=== PATIENT | male | born 1960 | race Caucasian/White ===

== ENCOUNTER → 2016-05-30 | Day surgery (SDC) | payer MEDICARE, BC ==
[~2016-05-30] MED LIST: ACETAMINOPHEN PO; AGGRENOX PO; ALBUTEROL17 GM INH; ANDROGEL2.5 GM; BACLOFEN10 MG; CELEBREX; CEPHALEXIN250 M1 PO; COLACE PO; COMBIVENT INH14.7 GM INH; COMBIVENT MININEB INH; COMBIVENT MININEB NEB; COREG3.125 MG PO; COUMADIN PO; COUMADIN10 MG PO; DESYREL50 MG PO; DIAZEPAM; ENULOSE; FIORINAL 50-321 EACH PO; FLEXERIL PO; HUMIBID DM1 TAB.SR . PO; HYDRALAZINE HCL25 MG PO; IPRATR-ALBUTEROL3 ML INH; KLONOPIN; KLONOPIN PO; KLONOPIN1 MG PO; KROGER PHARMACY; LAMISIL PO; LEVAQUIN PO; LEVOTHYROXINE25 MCG PO; LOW DOSE ASPIRI81 M1 PO; METAXALONE800 M1 PO; METHADONE; METHADONE PO; MORPHINE; MORPHINE INJ; MS CONTIN30 MG PO; MUCINEX DM1 TAB.SR . PO; NEURONTIN300 MG PO; OMNICEF300 MG PO; ONDANSETRON ODT4 MG PO; OXYCODONE HCL15 MG PO; OXYGEN; OYSTER CALCIUM500 MG PO; PANTOPRAZOLE SO40 MG; PHYSICIAN; PREDNISONE; PREDNISONE PO; PROAIR; PROTONIX PO; PROTONIX20 MG PO; PROZAC; REMERON15 MG PO; SEROQUEL; SEROQUEL PO; SEROQUEL25 MG PO; SEROQUEL50 M1 PO; SYMBICORT INH; SYNTHROID75 MCG PO; THEOPHYLLIN PO; TRAZODONE; TRAZODONE HCL100 MG PO; TRAZODONE PO; TYLOX 5/500 CAP1 CAP PO; VISTARIL PO; WARFARIN SODIU2.5 M1 PO; WARFARIN SODIUM10 MG PO; XARELTO20 MG PO; Z-PACK; ZANAFLEX4 M1 PO; ZESTRIL2.5 M1 PO; ZITHROMAX PO; ZOLOFT PO
--- NOTE | ~2016-05-30 | OR ---
Unit #: [id number] #: [id number] Patient: REAL MAX [id number] [address] [place], [place] [address] [id number] O MR#: [id number] NAME: REAL MAX ROOM: Date of Procedure: 05/30/2016 Admission Date: 05/30/2016 Surgeon: Jorge Medina M.D. : 1960 Attending Physician: Jorge Medina M.D. Primary Care Physician: Warren Roper M.D. OPERATIVE REPORT POSTOPERATIVE DIAGNOSES Postlumbar fusion, sacroiliac joint dysfunction, back pain. POSTOPERATIVE DIAGNOSES Postlumbar fusion, sacroiliac joint dysfunction, back pain. PROCEDURES PERFORMED 1. Left sacroiliac joint injection with fluoroscopic guidance for needle localization. 2. Diagnostic therapeutic hardware injection, lumbar spine. DESCRIPTION OF PROCEDURE The patient was placed in a prone position. Standard monitors were applied. A sterile prep and drape of the lumbosacral area was performed. Fluoroscopy was used to identify the mid part of the left sacroiliac joint. A 22-gauge Quincke point spinal needle was advanced with fluoroscopic guidance to bring the needle tip to the edge of the joint. Position was confirmed with radiographic contrast and fluoroscopy. This was followed by a dose of 5 mL of a mixture of 80 mg of Depo-Medrol and 6 mL of 0.5% bupivacaine. The patient tolerated this part of the procedure well. Left S1 hardware injection: Fluoroscopy was used to identify the junction of the left S1 screw and stabilizing bar. The skin overlying this was localized with 1% lidocaine. A 22-gauge Quincke point needle was then advanced with fluoroscopic guidance, so the needle came down to the junction between the stabilizing screw, the bar, and order entry clerk to the sacrum. After this was confirmed with fluoroscopy, a dose of 2 mL of a mixture of 80 mg of Depo-Medrol and 6 mL of 0.5% bupivacaine were deposited. The needle was flushed and removed. The patient tolerated the procedure well and was discharged to the recovery room in stable condition. Dictated by... Josiah Pino/nallely TD: 05/31/2016 00:51 JOB #: [id number] Unit #: [id number] #: [id number] Patient: REAL MAX OPERATIVE REPORT X Jorge Medina MD X PROCEDURE OPERATIVE NOTE
== END | disposition home or self-care (01) ==
LOC: CCSC 06:45
DX: M53.3 Sacrococcygeal disorders, not elsewhere classified (principal); Z98.1 Arthrodesis status
CPT/HCPCS: 64999; G0260; J2250

== ENCOUNTER → 2016-10-15 | Day surgery (SDC) | payer MEDICARE, BC ==
--- NOTE | ~2016-10-15 | OR ---
Unit #: [id number] #: [id number] Patient: REAL MAX [id number] [address] [place], [place] [address] [id number] O MR#: [id number] NAME: REAL MAX ROOM: Date of Procedure: 10/15/2016 Admission Date: 10/15/2016 Surgeon: Jorge Medina M.D. : 1960 Attending Physician: Jorge Medina M.D. Primary Care Physician: Warren Roper M.D. OPERATIVE REPORT JOB NOTE: CC: [facility] PREOPERATIVE DIAGNOSES Lumbar disk disease, postlumbar fusion, radiculopathy. POSTOPERATIVE DIAGNOSES Lumbar disk disease, postlumbar fusion, radiculopathy. PROCEDURE PERFORMED Transforaminal epidural steroid injection with fluoroscopic guidance for needle localization. INDICATIONS FOR PROCEDURE The patient is a 55-year-old male, who has been having worse on the left sided leg pain. He is status post L4, L5, S1 fusion. He has some adjacent level disease. Plan is for diagnostic and therapeutic injection tried to determine for the pain is emanating from that L3-L4 level, where there is neural foraminal narrowing due to disk issues. Risks and benefits of all reviewed. DESCRIPTION OF PROCEDURE The patient was placed in a prone position. Standard monitors were applied. Sterile prep and drape of the lumbar area was performed. The skin then to the left of midline at the L3-L4 level was localized with 1% lidocaine. A long 22-gauge Quincke point spinal needle was then advanced with biplanar fluoroscopic guidance to bring the needle tip within the left L3-L4 neural foramina. The patient had a mild paresthesia, which resolved with manipulation of the needle. After confirming proper positioning with fluoroscopy and radiographic contrast, a dose of 80 mg of Depo-Medrol and 1 mL of 0.25% bupivacaine were deposited. The patient will pay attention how he feels today with local anesthetic effect and see how he does longer term with the steroid effect. Dictated by... Jorge Medina M.D. LHP/modl TD: 10/15/2016 15:41 JOB #: [id number] Unit #: [id number] #: [id number] Patient: REAL MAX OPERATIVE REPORT Page 1 of 1 X Jorge Medina MD X PROCEDURE OPERATIVE NOTE
== END | disposition home or self-care (01) ==
LOC: CCSC 08:15
DX: M51.16 Intervertebral disc disorders with radiculopathy, lumbar region (principal); Z98.1 Arthrodesis status; Z88.1 Allergy status to other antibiotic agents; Z99.81 Dependence on supplemental oxygen; Z79.01 Long term (current) use of anticoagulants; Z79.891 Long term (current) use of opiate analgesic; Z79.51 Long term (current) use of inhaled steroids; Z79.82 Long term (current) use of aspirin; Z79.899 Other long term (current) drug therapy
CPT/HCPCS: J1040; J2250

== ENCOUNTER 2016-11-10 04:59 | Inpatient (IN) | payer MEDICARE, BC ==
--- NOTE | ~2016-11-10 | DS ---
Unit #: [id number] #: [id number] Patient: REAL MAX [id number] [address] [address] [id number] I MR#: [id number] NAME: REAL MAX ROOM: 310 Age: 56 Sex: M Admission Date: 11/10/2016 : 1960 Discharge Date: 11/13/2016 Attending Physician: Warren Roper M.D. Primary Care Physician: Warren Roper M.D. DISCHARGE SUMMARY PRINCIPAL DISCHARGE DIAGNOSES 1. Acute on chronic respiratory failure. 2. Left lower lobe community-acquired pneumonia secondary to Haemophilus influenzae. 3. Ongoing tobacco use. 4. Chronic obstructive pulmonary disease. 5. Major depressive disorder. 6. Chronic low back pain. 7. Old cerebrovascular accident. 8. Paroxysmal atrial fibrillation. 9. Chronic anticoagulation therapy. 10. Hyperglycemia. 11. Migraine headaches. 12. Hyponatremia. PROCEDURES None. CONSULTANTS Dr. Gunderson - Psychiatry. REASON FOR HOSPITALIZATION 56-year-old white male, history of COPD, tobacco use, chronic low back pain, major depressive disorder, history of pulmonary embolism, old CVA, paroxysmal atrial fibrillation, chronic anticoagulation therapy, presented to the emergency room with five days of shortness of air and headache. In the ER he had a low-grade temp, tachycardia, tachypnea. O2 sat was 90%. Lactic acid was normal. White count was 15.5, sodium was 130. Random blood sugar 176. Chest x-ray left lower lobe infiltrate and the patient was admitted. HOSPITAL COURSE The patient was admitted. He was placed on respiratory treatments, IV Solu-Medrol, IV antibiotics in the form of Rocephin and Zithromax. He quickly improved. Accu-Cheks were obtained because the Solu-Medrol and hyperglycemia were elevated. Because of this, an A1c was checked and was elevated at 6.2%. Blood cultures showed no growth to date. Sputum culture grew Haemophilus influenzae which was beta-lactamase negative. His sodium corrected on its own without any further treatment. His CBC yesterday showed white count to be down to 12.7, hemoglobin was 12.1. His BMP was normal except for random blood sugar of 141. He is being discharged home on a healthy heart constant carb diet. MEDICATIONS Unit #: [id number] #: [id number] Patient: REAL MAX His current meds: 1. Ventolin two puffs q.4 hours p.r.n. 2. Symbicort 160/4.5, two puffs q.12. 3. Duo-Nebs per unit dose three times daily. 4. Xarelto 20 mg daily. 5. Seroquel 50 mg b.i.d. 6. Remeron 15 mg q. h.s. 7. Tylenol 650 q.6 p.r.n. 8. Vistaril 25 mg t.i.d. 9. Klonopin 1 mg t.i.d. 10. Fiorinal one p.o. daily p.r.n. for headache. 11. MS-Contin 30 mg p.o. b.i.d. 12. Oxycodone 15 mg q.4 hours p.r.n. for breakthrough pain. 13. Zanaflex 4 mg p.o. q.8 hours p.r.n. for muscle spasm. 14. Omnicef 300 mg, one p.o. b.i.d. for an additional seven days. 15. Z-Fei, use as directed. 16. Prednisone 40 mg for two days, 30 mg for two days, 20 mg for two days, then 10 mg for two days, then discontinue. He will follow up in the office in less than one week. He was encouraged once again to stop tobacco use. Dictated by... Warren Roper M.D. AYSHA/madhavi TD: 11/14/2016 09:10 JOB #: [id number] DISCHARGE SUMMARY Page 1 of 1 X Warren Roper MD X DISCHARGE SUMMARY
--- NOTE | ~2016-11-10 | CR72 ---
[facility] A Service of [facility] & [facility] RADIOLOGY TEXT RESULTS PATIENT: REAL MAX LOCATION: [facility] 310-01 : [birth year] UNIT #: [id number] AGE: [address]: Warren Roper MD SEX: M ORDER DR: [id number] [facility] [address] [place], [place] [address] [id number] I MR#: [id number] Acc #: [id number] NAME: REAL MAX : 1960 SEX: M STUDY DATE/TIME: 11/10/2016 05:35 [facility] ROOM: [facility] STUDY DESCRIPTION: CR Chest Single View Portable Attending Physician: Warren Roper M.D. Ordering Physician: Rogers Elliott M.D. Primary Care Physician: Warren Roper M.D. MEDICAL IMAGING REPORT This report is preliminary unless electronic signature is present EXAM Portable chest 11/10 at 05:35 INDICATIONS Shortness of air for 5 days with a headache. COPD. FINDINGS AP portable chest compared with 05/05/2015. Cardiac and mediastinal contours are normal. The lungs are emphysematous. There is some minimal infiltrate or atelectasis at the left base. Lungs otherwise clear. No pneumothorax. IMPRESSION COPD with some minimal infiltrate or atelectasis at the left base. Dictated by... Humphrey Pickett Jr., M.D. THIS IS AN ELECTRONICALLY VERIFIED REPORT Humphrey Pickett Jr., M.D. at 11/11/2016 3:15 AM PAMELA/evi TD: 11/10/2016 22:19 JOB #: [id number] MEDICAL IMAGING REPORT Page 1 of 1 COPY
--- NOTE | ~2016-11-10 | HP ---
Unit #: [id number] #: [id number] Patient: REAL MAX [id number] [address] [address] [id number] I MR#: [id number] NAME: REAL MAX ROOM: 310 Age: 56 Sex: M Admission Date: 11/10/2016 : 1960 Attending Physician: Warren Roper M.D. Primary Care Physician: Warren Roper M.D. HISTORY AND PHYSICAL HISTORY OF PRESENT ILLNESS A 56-year-old white male with history of COPD, tobacco use, chronic low back pain, major depressive disorder, history of pulmonary embolism, old CVA, paroxysmal atrial fibrillation and chronic anticoagulation therapy presents to the emergency room with five days of shortness of air and headache. In the ER, he had a low-grade temp of 100.9, tachycardia, tachypnea. O2 sat was 90% but is unclear whether that was on his home O2 or room air, although it states room air. His lactic acid was normal. White count was 15.5. Sodium was 130. Random blood sugar was 176. Chest x-ray revealed a left lower lobe infiltrate and the patient is admitted. PAST MEDICAL HISTORY COPD, tobacco use, CVA, paroxysmal atrial fibrillation, chronic low back pain, major depressive disorder. He is on O2 2.5 liters nasal cannula q.h.s. and p.r.n. PAST SURGICAL HISTORY Back surgery in 2001, 2003 and 2005, appendectomy, pain pump in 2006, vein ligated from his left lower extremity, elbow repair. SOCIAL HISTORY He is single. He has one living child. He smokes a third pack cigarettes daily. No alcohol or street drug us. FAMILY HISTORY Noncontributory. ALLERGIES Levaquin. MEDICATIONS PRIOR TO ADMISSION 1. Oxycodone 15 mg q.4 hours p.r.n. for pain. 2. MS Contin 30 mg p.o. b.i.d. 3. Klonopin 1 mg t.i.d. 4. Symbicort 160/4.5 mcg two puffs q.12. 5. Albuterol/Atrovent unit dose mini nebs three times daily. 6. Seroquel 25 mg b.i.d. 7. Fiorinal one daily p.r.n. for headaches. 8. Zanaflex 4 mg q.8 hours p.r.n. for muscle spasm. 9. Xarelto 20 mg daily. 10. Ventolin two puffs q. 4 hours p.r.n. for shortness of air. PHYSICAL EXAMINATION GENERAL APPEARANCE: He is awake, alert, oriented x3, in mild respiratory Unit #: [id number] #: [id number] Patient: REAL MAX distress with ongoing cough. VITAL SIGNS: Temperature was 100.9 in the ER. Currently, it is 101.3. His pulse was 131, respirations 30, blood pressure 120/90. O2 sat, as mentioned above, was 90%. I am not sure exactly if this was on room or not. HEENT: In any case, HEENT is otherwise unremarkable except for nasal cannula in place. NECK: Supple without JVD, bruits, adenopathy or thyromegaly. CHEST: Diffusely decreased breath sounds with rhonchi and rales in the left lower lobe but no audible wheezing. HEART: Regular rate and rhythm without any murmurs, rubs or gallops. ABDOMEN: Soft, nondistended, nontender with positive bowel sounds and no hepatosplenomegaly. EXTREMITIES: No clubbing, cyanosis or edema. GENITOURINARY: Deferred. RECTAL: Deferred. NEUROLOGIC: Grossly intact. DIAGNOSTIC STUDIES LABORATORY: Lactic acid was 0.9. Cardiac enzymes normal times one set. White count 16.5 with a left shift. The rest of the CBC is normal. CMP is normal except for a random blood sugar of 176 and a sodium of 130. Procalcitonin was ordered but not done yet. Sputum shows many WBCs with moderate gram-positive cocci in pairs and moderate gram-negative cocci bacilli. IMAGING: Chest x-ray reportedly shows left lower lobe infiltrate per the ER physician. CARDIOVASCULAR: EKG shows sinus tachycardia with some baseline wander but is otherwise normal with 121 beats per minute. IMPRESSION 1. Community-acquired pneumonia left lower lobe. 2. Exacerbation of COPD. 3. Tobacco use. 4. Chronic low back pain. 5. Major depressive disorder. 6. Hyponatremia. 7. Old CVA. 8. Paroxysmal atrial fibrillation. 9. Chronic anticoagulation therapy. PLAN Check ABGs on current FIO2. Follow his sodium. Follow his white count. IV Rocephin. IV Zithromax. Blood cultures. Sputum culture. Check procalcitonin. DVT prophylaxis covered with Xarelto. Further evaluation pending results of the above. Dictated by Josiah Nieves/ольга TD: 11/10/2016 11:12 Unit #: [id number] #: [id number] Patient: REAL MAX JOB #: [id number] HISTORY AND PHYSICAL Page 1 of 1 X Warren Roper MD X HISTORY AND PHYSICAL
--- NOTE | ~2016-11-10 | CO ---
Unit #: [id number] #: [id number] Patient: YEMI MAX [id number] [address] [facility]. [place], [place] [address] [id number] I MR#: [id number] NAME: YEMI MAX ROOM: 310 Age: 56 Sex: M Admission Date: 11/10/2016 : 1960 Attending Physician: Warren Roper M.D. Primary Care Physician: Warren Roper M.D. Consultation Date: 11/12/2016 CONSULTATION REPORT REASON FOR CONSULTATION Depression, anxiety. HISTORY OF PRESENT ILLNESS Mr. Yemi Harrell is a 56-year-old white male seen in room 310, bed 1 on 11/12/16 at [facility]. Patient was admitted on 11/10/16, has a history of COPD, tobacco abuse, chronic low back pain, major depressive disorder, history of pulmonary embolism, old CVA, paroxysmal atrial fibrillation on chronic anticoagulation therapy. Patient dressed casually, is sitting comfortably in bed, seems somewhat anxious but speech was rapid in rate. Patient reported having suicidal ideation but denied any plans. He denied any auditory or visual hallucination but somewhat guarded, pressured speech, mood lability. Patient reports taking medication for depression and anxiety. The patient's vital signs are 98.7, 81, 16, 108/62, heart rate 97. PAST PSYCHIATRIC HISTORY Past psychiatric history is remarkable for history of depression and anxiety, history of previous treatment on outpatient basis, history of inpatient treatment in 2003 at [facility]. MEDICATION Patient is on Klonopin 1 mg t.i.d., Seroquel 25 mg b.i.d. Patient is also on oxycodone, MS Contin, Symbicort, albuterol, Xarelto, Ventolin. ALLERGIES Levaquin. FAMILY HISTORY AND SOCIAL HISTORY Patient reported that he has a good support system, no history of abuse, denied any use of any drugs and alcohol. REVIEW OF SYSTEMS Complete review of systems is unremarkable except as mentioned above. MENTAL STATUS EXAMINATION Vital signs please see above. General appearance, patient is dressed in hospital attire, sitting in bed, somewhat anxious, nervous. Attention span and concentration poor. Speech rapid in rate. Oriented in time, place and person. Mood and affect labile. Thought process coherent to circumstantial. Thought content, denied any homicidal ideation but reported passive suicidal ideation, able to contract for safety, denied any hallucination. Recent and remote memory fair. Language intact. Fund Unit #: [id number] #: [id number] Patient: YEMI MAX of knowledge fair. Insight and judgment fair to slightly impaired. DIAGNOSES PSYCHIATRIC: 1. Major depressive disorder, recurrent, severe, F33.2. 2. Anxiety disorder, not otherwise specified, F40.01. Secondary diagnosis: Deferred. Medical diagnosis: Please refer to H and P. Stressors: Psychosocial stressors. ASSESSMENT AND PLAN 1. Supportive psychotherapy and psychoeducation provided to patient. 2. Educated about benefits and side effects of medication and course and prognosis of illness. 3. Recommending at this time to increase Seroquel to 50 mg b.i.d., Vistaril 25 mg t.i.d., Remeron 15 mg q.h.s., Klonopin to continue with 1 mg t.i.d. The patient's symptoms may be worse due to current steroid treatment. Patient is currently on Solu-Medrol 50 mg q.12 h. We will closely monitor. If needed, consider further adjustment of medication. Please feel free to call if any question. Telephone number [phone]. Dictated by... Art Gunderson M.D. NAVARRO/marcelo TD: 11/12/2016 17:22 JOB #: [id number] CONSULTATION REPORT Page 1 of 1 X Art Gunderson MD X CONSULTATION REPORT
--- NOTE | ~2016-11-10 | EKG ---
PATIENT: REAL MAX UNIT #: [id number] Ventricular Rate: 121 BPM Atrial Rate: 121 BPM P-R Interval: 126 ms QRS Duration: 86 ms Q-T Interval: 298 ms QTC Calculation(Bezet): 423 ms P [place]: 74 degrees Calculated R [place]: 85 degrees Calculated T [place]: 56 degrees Diagnosis Line: Sinus tachycardia Diagnosis Line: Otherwise normal ECG Diagnosis Line: When compared with ECG of 02-JAN-2016 10:25, Diagnosis Line: Vent. rate has increased BY 49 BPM Diagnosis Line: QRS duration has decreased Diagnosis Line: Confirmed by AARON MURRAY MD ([id number]) on 11/10/2016 Diagnosis Line: 3:13:10 PM INTERPRETING MD: TREVOR SHANE
[~2016-11-10 04:59] MED LIST changes: -ALBUTEROL17 GM INH; -OMNICEF300 MG PO; -PREDNISONE; -REMERON15 MG PO; -VISTARIL PO; -Z-PACK
[2016-11-10 05:47] LABS: BASOPHIL# 0.1 X10e3 (0-0.3); BASOPHIL% 0.4 % (0-2.5); EOSINOPHIL% 0.2 % (0.0-7.0); HEMATOCRIT 39.9 % (38.0-50.0); HEMOGLOBIN 13.4 gm/dL (13.0-16.0); LYMPHOCYTE# 1.7 X10e3 (1.0-3.5); LYMPHOCYTE% 10.8 % (17.0-45.0); MEAN CELL VOLUME 89.3 FL (83-96); MEAN CORPUSCULAR HGB CONC 33.6 g/dL (30-36); MEAN PLATELET VOLUME 7.4 FL (6.5-11.5); MONOCYTE# 1.5 X10e3 (0-1.0); MONOCYTE% 9.7 % (3.0-12.0); NEUTROPHIL# 12.2 X10e3 (1.5-7.1); NEUTROPHIL% 78.9 % (40-75); PLATELET COUNT 211 X10e3 (140-420); RED BLOOD COUNT 4.46 X10e (3.90-5.60); RED CELL DISTRIBUTION WIDTH 14.3 % (11.0-15.5); WHITE BLOOD COUNT 15.5 X10e3 (4.0-10.5)
[2016-11-10 05:48] LABS: DIFF IND YES
[2016-11-10 05:49] LABS: POC - TROPONIN <0.05 ng/mL (<=0.05)
[2016-11-10 06:11] LABS: ANISOCYTOSIS SL; PLATELET ESTIMATE NORMAL (NORMAL)
[2016-11-10 06:12] LABS: ALBUMIN SERUM 3.9 g/dL (3.5-5.0); BILIRUBIN, DIRECT 0.1 mg/dL (0.0-0.2); BILIRUBIN,INDIRECT 0.7 mg/dL (0.0-0.9); BILIRUBIN,TOTAL 0.8 mg/dL (0.2-2.0); CALCIUM SERUM 8.7 mg/dL (8.4-10.2); CREATININE SERUM 0.6 mg/dL (0.6-1.4); GLOM FILT RATE Estimated 113.2 mL/min (>60); POTASSIUM 4.2 mmol/L (3.5-5.1); PROTEIN TOTAL SERUM 7.5 g/dL (6.0-8.3)
[2016-11-10] MEDS ORDERED: ALBUTEROL17 GM INH (07:06)
[2016-11-10 10:36] LABS: ARTERIAL BLD GAS O2 SATURATION 93.7 % (90.0-100.0); ARTERIAL BLOOD GAS ALLEN TEST NORMAL; ARTERIAL BLOOD GAS ART SITE LEFT RADIAL; ARTERIAL BLOOD GAS CARBOXY HB 1.8 %sat (0.0-9.0); ARTERIAL BLOOD GAS DELIVERY NASAL CANNULA; ARTERIAL BLOOD GAS HCO3 28.8 mmol/L; ARTERIAL BLOOD GAS MET HB 0.6 %sat (0.0-2.0); ARTERIAL BLOOD GAS PCO2 43.6 mmHg (35.0-45.0); ARTERIAL BLOOD GAS PO2 73.9 mmHg (80.0-100); ARTERIAL BLOOD GAS pH 7.429 (7.350-7.450); ARTERIAL DRAW? YES
[2016-11-11 06:55] LABS: HEMATOCRIT 36.4 % (38.0-50.0); HEMOGLOBIN 12.4 gm/dL (13.0-16.0); LYMPHOCYTE# 0.9 X10e3 (1.0-3.5); LYMPHOCYTE% 6.9 % (17.0-45.0); MEAN CELL VOLUME 88.9 FL (83-96); MEAN CORPUSCULAR HEMOGLOBIN 30.2 PG (28-34); MEAN PLATELET VOLUME 7.3 FL (6.5-11.5); MONOCYTE# 0.8 X10e3 (0-1.0); NEUTROPHIL# 10.9 X10e3 (1.5-7.1); NEUTROPHIL% 87.1 % (40-75); PLATELET COUNT 197 X10e3 (140-420); RED BLOOD COUNT 4.09 X10e (3.90-5.60); WHITE BLOOD COUNT 12.6 X10e3 (4.0-10.5)
[2016-11-11 06:57] LABS: DIFF IND NO
[2016-11-11 07:30] LABS: BUN/CREATININE RATIO 25.71; CALCIUM SERUM 8.8 mg/dL (8.4-10.2); CREATININE SERUM 0.7 mg/dL (0.6-1.4); GLOM FILT RATE Estimated 106.3 mL/min (>60)
[2016-11-12 04:57] LABS: HEMATOCRIT 36.2 % (38.0-50.0); HEMOGLOBIN 12.1 gm/dL (13.0-16.0); MEAN CELL VOLUME 89.7 FL (83-96); MEAN CORPUSCULAR HGB CONC 33.4 g/dL (30-36); MEAN PLATELET VOLUME 7.6 FL (6.5-11.5); RED BLOOD COUNT 4.04 X10e (3.90-5.60); RED CELL DISTRIBUTION WIDTH 14.4 % (11.0-15.5); WHITE BLOOD COUNT 12.7 X10e3 (4.0-10.5)
[2016-11-12 05:35] LABS: BUN/CREATININE RATIO 24.28; CREATININE SERUM 0.7 mg/dL (0.6-1.4); GLOM FILT RATE Estimated 106.3 mL/min (>60)
[2016-11-13] MEDS ORDERED: REMERON15 MG PO (09:19)
[2016-11-13] MEDS ORDERED: ACETAMINOPHEN PO (09:19)
[2016-11-13] MEDS ORDERED: Z-PACK (09:21)
[2016-11-13] MEDS ORDERED: VISTARIL PO (09:21)
[2016-11-13] MEDS ORDERED: OMNICEF300 MG PO (09:22)
[2016-11-13] MEDS ORDERED: PREDNISONE (09:23)
== END 2016-11-13 12:20 | disposition home health service (06) | DRG 189 ==
LOC: CED 04:59 → CEDOF 06:50 → CED 07:18 → CEDOF 07:18 → C3A PCU 07:53 → CEDOF 07:53 → C3A PCU 11-13 12:20
PROVIDERS: Emergency Medicine; Internal Medicine
DX: J96.20 Acute and chronic respiratory failure, unspecified whether with hypoxia or hypercapnia (principal); J14 Pneumonia due to Hemophilus influenzae; J44.0 Chronic obstructive pulmonary disease with (acute) lower respiratory infection; F33.2 Major depressive disorder, recurrent severe without psychotic features; I48.0 Paroxysmal atrial fibrillation; G43.909 Migraine, unspecified, not intractable, without status migrainosus; E87.1 Hypo-osmolality and hyponatremia; F17.210 Nicotine dependence, cigarettes, uncomplicated; G89.29 Other chronic pain; M54.9 Dorsalgia, unspecified; Z79.01 Long term (current) use of anticoagulants; R73.9 Hyperglycemia, unspecified; F41.9 Anxiety disorder, unspecified; Z88.8 Allergy status to other drugs, medicaments and biological substances; Z86.73 Personal history of transient ischemic attack (TIA), and cerebral infarction without residual deficits
CPT/HCPCS: 36415; 36600; 71010; 80048; 80076; 82308; 82553; 82803; 82947; 83036; 83605; 84484; 85025; 85027; 87040; 87070; 87077; 87205; 93005; 94640; 94644; 94760; 99285; J0456; J0696; J1815; J2270; J2550; J2930